=== PATIENT | female | born 1935 | race Caucasian/White ===

== ENCOUNTER 2018-08-01 15:07 | Emergency (ER) | payer OTHER ==
[~2018-08-01] VITALS: Ht 157.5 cm; Wt 68.0 kg
[~2018-08-01 15:07] MED LIST: ACETAMINOPHEN325 M1 PO; ADVAIR 100-501 EACH INH; ADVAIR 250-501 EACH INH; ASPIRIN81 M2 PO; CIPROFLOXACIN500 M1 PO; CLONAZEPAM 1 MG1 M1 PO; COUMADIN 3 MG TA3 MG PO; COUMADIN 5 MG TA5 M1 PO; DARVOCET-N 1001 EACH PO; ENOXAPARIN80 MG/0.1 SUBQ; EXCEDRIN CAPLE1 EACH PO; FLUOXETINE HCL40 MG PO; HYDROCODON-ACE1 EAC7 PO; HYDROCODONE-AP1 EAC6 PO; LEVOTHYROXIN0.025 M1 PG; LEVOTHYROXIN0.025 MG PO; LEVOTHYROXIN0.075 MG PO; LIPITOR10 MG PO; LIVALO2 MG PO; LOVENOX SUBQ; LUMIGAN2.5 ML OP; MYSOLINE250 MG PO; OMEPRAZOLE40 MG PO; PATADAY2.5 ML OPHTHALMIC; PREDNISONE 10 M10 M1 PO; PRIMIDONE 250M250 MG PO; PROZAC20 MG PO; REMERON15 MG PO; TRAVATAN Z2.5 ML OPHTHALMIC; XARELTO15 MG PO; XARELTO20 MG PO
[2018-08-01] MEDS ORDERED: ALBUTEROL2.5 MG/31 INH (15:32)
[2018-08-01] MEDS ORDERED: IPRATROPIU0.2 MG/1 M INH (15:33)
[2018-08-01] MEDS ORDERED: SYNTHROID50 MCG PO (15:33)
[2018-08-01] MEDS ORDERED: VESICARE 5 MG TA5 MG PO (15:33)
[2018-08-01] MEDS ORDERED: VOLTAREN GEL 1100 G2 TOP (17:03)
== END 2018-08-01 17:19 | disposition home or self-care (01) ==
LOC: ER 15:07
DX: M54.5 Low back pain (principal); R35.0 Frequency of micturition; R39.15 Urgency of urination; R20.0 Anesthesia of skin; J45.909 Unspecified asthma, uncomplicated; I10 Essential (primary) hypertension; E78.5 Hyperlipidemia, unspecified; F41.1 Generalized anxiety disorder; G43.909 Migraine, unspecified, not intractable, without status migrainosus; E03.9 Hypothyroidism, unspecified; M19.90 Unspecified osteoarthritis, unspecified site; E66.9 Obesity, unspecified; Z68.27 Body mass index [BMI] 27.0-27.9, adult; Z88.1 Allergy status to other antibiotic agents; Z88.0 Allergy status to penicillin; Z98.890 Other specified postprocedural states; Z88.2 Allergy status to sulfonamides; Z88.8 Allergy status to other drugs, medicaments and biological substances